=== PATIENT | male | born 1955 ===

== ENCOUNTER 2019-08-09 06:51 | Day surgery (SDC) | payer OTHER ==
[~2019-08-09 06:51] MED LIST: COZAAR50 MG PO; METFORMIN HCL500 M3 PO
== END 2019-08-09 20:45 | disposition home or self-care (01) ==
LOC: CIR.AMB 06:51 → EDBD 13:15 → CIR.AMB 13:15 → ADM 13:15 → CIR.AMB 20:45
PROVIDERS: ATTEND Urology
DX: C61 Malignant neoplasm of prostate (principal); N20.1 Calculus of ureter; R31.29 Other microscopic hematuria